=== PATIENT | female | born 1975 | race Caucasian/White ===

== ENCOUNTER 2019-07-13 11:53 | Emergency (ER) | payer SELFPAY ==
[2019-07-13 12:35] VITALS: BP 105/61
[2019-07-13] MEDS ORDERED: SODIUM CHLORIDE 0.9% 250ML 250 ML ONE (14:45)
== END 2019-07-13 15:06 | disposition left against medical advice (07) ==
LOC: ED 11:53
DX: R51 Headache (principal); Z53.21 Procedure and treatment not carried out due to patient leaving prior to being seen by health care provider
CPT/HCPCS: J7050